=== PATIENT | female | born 1995 | race Caucasian/White ===

== ENCOUNTER 2018-12-19 22:49 | Emergency (ER) | payer SELFPAY ==
--- NOTE | 2018-12-19 23:52 | NUR ---
PATIENT WAS CALLED SEVERAL TIMES TO BE TRIAGED. PATIENT WAS NOT PRESENT. PATIENT WAS NOT SEEN BY ERMD OR TRIAGED.
== END 2018-12-19 23:53 | disposition left against medical advice (07) ==
LOC: ER 22:49
DX: Z53.21 Procedure and treatment not carried out due to patient leaving prior to being seen by health care provider (principal)